=== PATIENT | female | born 1990 | race Caucasian/White ===

== ENCOUNTER 2017-05-28 11:00 | Emergency (ER) | payer OTHER ==
--- NOTE | 2017-05-28 11:07 | PDOC ---
History of Present Illness - General History Source: Patient Exam Limitations: No Limitations - History of Present Illness Initial Comments: 05/28/17 11:54 27 y.o female with no significant past medical history, who presents to the emergency room complaining of 2 weeks of vaginal bleeding, weakness, and dizziness that began after being treated with Misoprostol for an ectopic . The patient explains that the ectopic was confirmed via Ultrasound at [facility] in [place] 2 weeks ago. Initially when the vaginal bleeding began, she was saturating 7-10 pads daily. However, the bleeding gradually decreased and she is now saturating approximately 4 pads per day. Denies clots in the blood. She notes an associated foul odor that is causing her to change her pad more frequently. The patient also reports that she started feeling dizzy and weak and was instructed to return to an ED if these symptoms persist. Denies fever, chills, nausea, vomiting. Denies LOC, lightheadedness, chest pain, SOB. Allergies: NKA <Iza Pearl - Last Filed: 05/28/17 11:54> <Mitzy Burroughs - Last Filed: 05/28/17 14:57> - General Chief Complaint: Vaginal Bleeding Stated Complaint: VAGINAL BLEEDING Time Seen by Provider: 05/28/17 11:07 Past History <Iza Pearl - Last Filed: 05/28/17 11:54> - Past Medical History Asthma: No Cancer: No Cardiac Disorders: No Diabetes: No HTN: No Seizures: No Thyroid Disease: No - Suicide/Smoking/Psychosocial Hx Smoking History: Never smoked Have you smoked in the past 12 months: No Hx Alcohol Use: No Drug/Substance Use Hx: No Hx Substance Use Treatment: No <Mitzy Burroughs - Last Filed: 05/28/17 14:57> - Past Medical History Allergies/Adverse Reactions: Allergies Allergy/AdvReac Type Severity Reaction Status Date / Time No Known Allergies Allergy Verified 05/28/17 11:33 Home Medications: Ambulatory Orders NK [No Known Home Medication] 05/28/17 Review of Systems - Review of Systems Able to Perform ROS?: Yes Comments:: 05/28/17 11:55 GENERAL/CONSTITUTIONAL: +weakness, +dizziness. No fever or chills. HEAD, EYES, EARS, NOSE AND THROAT: No change in vision. No ear pain or discharge. No sore throat. GASTROINTESTINAL: No nausea, vomiting, diarrhea or constipation. GENITOURINARY: +vaginal bleeding. No dysuria, frequency, or change in urination. CARDIOVASCULAR: No chest pain or shortness of breath. RESPIRATORY: No cough, wheezing, or hemoptysis. MUSCULOSKELETAL: No joint or muscle swelling or pain. No neck or back pain. SKIN: No rash NEUROLOGIC: No headache, vertigo, loss of consciousness, or change in strength/ sensation. ENDOCRINE: No increased thirst. No abnormal weight change. HEMATOLOGIC/LYMPHATIC: No anemia, easy bleeding, or history of blood clots. ALLERGIC/IMMUNOLOGIC: No hives or skin allergy. <Iza Pearl - Last Filed: 05/28/17 11:54> *Physical Exam - Vital Signs Last Vital Signs Temp Pulse Resp BP Pulse Ox 99.0 F 93 H 18 130/65 100 05/28/17 11:06 05/28/17 11:06 05/28/17 11:06 05/28/17 11:06 05/28/17 11:06 - Physical Exam Comments: 05/28/17 11:55 GENERAL: Awake, alert, and fully oriented, in no acute distress HEAD: No signs of trauma EYES: PERRLA, EOMI, sclera anicteric, conjunctiva clear ENT: Auricles normal inspection, hearing grossly normal, nares patent, oropharynx clear without exudates. Moist mucosa NECK: Normal ROM, supple, no lymphadenopathy, JVD, or masses LUNGS: Breath sounds equal, clear to auscultation bilaterally. No wheezes, and no crackles HEART: Regular rate and rhythm, normal S1 and S2, no murmurs, rubs or gallops ABDOMEN: Soft, nontender, normoactive bowel sounds. No guarding, no rebound. No masses PELVIC: There was a moderate amount of blood in the vaginal vault with active bleeding from the cervical os. The os was friable, but closed. No cervical motion tenderness. No adnexal tenderness EXTREMITIES: Normal range of motion, no edema. No clubbing or cyanosis. No cords, erythema, or tenderness NEUROLOGICAL: Cranial nerves II through XII grossly intact. Normal speech, normal gait SKIN: Warm, Dry, normal turgor, no rashes or lesions noted. <Iza Pearl - Last Filed: 05/28/17 11:54> ED Treatment Course - LABORATORY CBC & Chemistry Diagram: 05/28/17 11:51 05/28/17 11:51 <Mitzy Burroughs - Last Filed: 05/28/17 14:57> Medical Decision Making - Medical Decision Making 05/28/17 14:48 Pt presents to the ED complaining of crampy abdominal pain and foul smelling vaginal discharge after treated for ectopic two weeks ago at [facility]. No fever, abdomen is non tender on my exam, + vaginal bleeding. Concern for persistent ectopic vs retained products of conception. US is negative for ectopic but does show evidence of retained products. Since she has no fever, elevated WBC count or severe pain, I feel that it is safe for her to be discharged home with urgent OB follow up. Will discharge patient with referral to OB. <Mitzy Burroughs - Last Filed: 05/28/17 14:57> *DC/Admit/Observation/Transfer - Attestations Scribe Attestion: 05/28/17 11:56 Documentation prepared by TEOFILO Carlisle, acting as biomedical equipment support specialist for Mitzy Burroughs MD. <Iza Pearl - Last Filed: 05/28/17 11:54> - Discharge Dispostion Admit: No <Mitzy Burroughs - Last Filed: 05/28/17 14:57> Diagnosis at time of Disposition: Retained products of conception without hemorrhage - Discharge Dispostion Disposition: HOME Condition at time of disposition: Good - Referrals Referrals: Alondra Patel MD [Staff Physician] - - Patient Instructions Printed Discharge Instructions: DI for Ectopic Additional Instructions: you have retained products of conception, and will likely need a procedure called a D and C. You must follow up with an ski technician within one week. Return immediately to the ED for fever, severe pain, nausea and vomiting, worsening vaginal bleeding, other new or worsening symptoms. Return to the ED if the OB referral we gave you will not see you within one week.
[2017-05-28 11:35] VITALS: BMI 27.4
[2017-05-28 11:58] LABS: BASO % 0.2 % (0-2.0); EOS % 3.5 % (0-4.5); HEMATOCRIT 38.7 % (32.4-45.2); HEMOGLOBIN 12.4 GM/dL (10.7-15.3); LYMPH % 18.9 % (8-40); MCH 27.6 pg (25.7-33.7); MCHC 32.1 g/dl (32.0-36.0); MEAN CELL VOLUME 86.2 fl (80-96); MEAN PLT VOLUME 8.9 fl (7.5-11.1); MONO % 6.5 % (3.8-10.2); NEUT % 70.9 % (42.8-82.8); PLATELET COUNT 252 K/MM3 (134-434); RBC 4.49 M/mm3 (3.60-5.2); RDW 13.2 % (11.6-15.6); WHITE BLOOD COUNT 8.9 K/mm3 (4.0-10.0)
[2017-05-28 12:15] LABS: INR 1.1 (0.82-1.09); PROTHROMBIN TIME (PATIENT) 12.4 SEC (9.98-11.88)
[2017-05-28 12:18] LABS: ACTIVATED PTT 30.6 SECONDS (26.9-34.4)
[2017-05-28 12:31] LABS: ALBUMIN 3.7 g/dl (3.4-5.0); ANION GAP 7 (8-16); BLOOD UREA NITROGEN 11 mg/dL (7-18); CALCIUM 9.2 mg/dL (8.5-10.1); CHLORIDE 105 mmol/L (98-107); CO2 28 mmol/L (21-32); CREATININE 0.9 mg/dL (0.55-1.02); GLUCOSE,RANDOM 101 mg/dL (74-106); POTASSIUM 4.2 mmol/L (3.5-5.1); SGOT/AST 18 U/L (15-37); SGPT/ALT 20 U/L (12-78); SODIUM 140 mmol/L (136-145)
[2017-05-28 12:33] LABS: BILIRUBIN,TOTAL 0.2 mg/dL (0.2-1.0); TOT PROT 7.4 g/dl (6.4-8.2)
[2017-05-28 12:36] LABS: ALK PHOS 91 U/L (45-117)
[2017-05-28 15:04] VITALS: BP 119/68; PULSE 72
[2017-05-28 15:11] VITALS: TEMP 98.9
== END 2017-05-28 15:12 | disposition home or self-care (01) ==
LOC: JER 11:00
DX: N89.8 Other specified noninflammatory disorders of vagina (principal); N93.9 Abnormal uterine and vaginal bleeding, unspecified; O03.39 Incomplete spontaneous abortion with other complications; O03.4 Incomplete spontaneous abortion without complication
CPT/HCPCS: 36415; 76817-TC; 80053; 84702; 84703; 85025; 85610; 85730; 86850; 86900; 86901; 99282-25

== ENCOUNTER 2018-09-07 16:17 | Emergency (ER) | payer OTHER ==
[2018-09-07 16:29] VITALS: BP 137/78; PULSE 82; TEMP 99; BMI 26.6
[2018-09-07] MEDS ORDERED: ACETAMINOPHEN 325 MG TABLET (FP) PO ONE (17:14)
--- NOTE | 2018-09-07 17:20 | PDOC ---
History of Present Illness - General Chief Complaint: Pain, Acute Stated Complaint: Pain, Acute Time Seen by Provider: 09/07/18 16:42 - History of Present Illness Initial Comments: 09/07/18 17:15 28 yo A2 at 9wga, LMP 07/01/18, with no significant pmh who p/w LLQ abdominal pain. Patient reports acute onset of sharp, shooting, LLQ abdominal pain, radiating to left flank at approximately 2:00 PM this evening, at rest. 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 Worse with rotational movement and touch. Denies h/o similar presentation. Mirta abdominal trauma. Patient reports TVUS (09/06/18) wnl. Nml PO intake and bowel habits. On B6 for nausea asx. w/ . Patient denies REED, vision change, palpitations, cough, wheezing, orthopena, PND , leg swelling/pain, vomitting, F,C, CP, SOB, urinary complaints, vaginal pain/ bleeding/itching/discharge, hematuria, BPR, diarrhea, constipation, lightheadedness, weakness, sensory changes. PMHx: as noted above. Denies abdominal surgery. ROS: as noted SHx: Denies Etoh, IVDA, tobacco use. Allergies: NKDA [facility]: Rosamaria Past History - Past Medical History Allergies/Adverse Reactions: Allergies Allergy/AdvReac Type Severity Reaction Status Date / Time No Known Allergies Allergy Verified 12/28/17 14:22 Home Medications: Ambulatory Orders NK [No Known Home Medication] 12/28/17 Asthma: No Cancer: No Cardiac Disorders: No COPD: No Diabetes: No Disorders: Yes (HPV) HTN: No Seizures: No Thyroid Disease: No - Immunization History Immunization Up to Date: No - Suicide/Smoking/Psychosocial Hx Smoking History: Former smoker Have you smoked in the past 12 months: No Information on smoking cessation initiated: No Hx Alcohol Use: No Drug/Substance Use Hx: No Substance Use Type: None Hx Substance Use Treatment: No Review of Systems - Review of Systems Comments:: 09/07/18 17:20 GENERAL/CONSTITUTIONAL: No fever or chills. No weakness. HEAD, EYES, EARS, NOSE AND THROAT: No change in vision. No ear pain or discharge. No sore throat. CARDIOVASCULAR: No chest pain or shortness of breath RESPIRATORY: No cough, wheezing, or hemoptysis. GASTROINTESTINAL: + LLQ and left flank abdominal pain. +nausea. no vomiting, diarrhea or constipation. GENITOURINARY: No dysuria, frequency, or change in urination. MUSCULOSKELETAL: No joint or muscle swelling or pain. No neck or back pain. SKIN: No rash NEUROLOGIC: No headache, vertigo, loss of consciousness, or change in strength/ sensation. ENDOCRINE: No increased thirst. No abnormal weight change HEMATOLOGIC/LYMPHATIC: No anemia, easy bleeding, or history of blood clots. ALLERGIC/IMMUNOLOGIC: No hives or skin allergy. *Physical Exam - Vital Signs Last Vital Signs Temp Pulse Resp BP Pulse Ox 99.0 F 82 18 137/78 100 09/07/18 16:28 09/07/18 16:28 09/07/18 16:28 09/07/18 16:28 09/07/18 16:28 - Physical Exam Comments: 09/07/18 17:20 GENERAL: Awake, alert, and fully oriented, in no acute distress HEAD: No signs of trauma, normocephalic, atraumatic EYES: PERRLA, EOMI, sclera anicteric, conjunctiva clear ENT: Auricles normal inspection, hearing grossly normal, nares patent, oropharynx clear without exudates. Moist mucosa NECK: Normal ROM, supple, no lymphadenopathy, JVD, or masses LUNGS: No distress, speaks full sentences, clear to auscultation bilaterally HEART: Regular rate and rhythm, normal S1 and S2, no murmurs, rubs or gallops, peripheral pulses normal and equal bilaterally. ABDOMEN: + LLQ abdominal ttp, and left flank ttp. Soft, NDS, normoactive bowel sounds. No guarding, no rebound. No masses.Neg CVA ttp. GENITOURINARY: + left adenexal ttp. Nml appearing external genitalia, with absent lesions. Vaginal vault without blood, or discharge. Cervical os closed. Neg CMT on BM.or mass palpated. Pleivc performed with supervising physician Dr. Alonzo. EXTREMITIES : Normal inspection, Normal range of motion, no edema. No clubbing or cyanosis. NEUROLOGICAL: Cranial nerves II through XII grossly intact. Normal speech, normal gait, no focal sensorimotor deficits SKIN: Warm, Dry, normal turgor, no rashes or lesions noted ED Treatment Course - LABORATORY CBC & Chemistry Diagram: 09/07/18 17:31 09/07/18 17:31 - RADIOLOGY Radiology Studies Ordered: 09/07/18 19:58 Study Date: 07-Sep-2018 19:16 Ethel Carter Name: [facility] DEPARTMENT OF RADIOLOGY Phys: Vishnu Castillo RESIDENT : 1990 Age: 28 Sex: F [facility] Acct: [id number] Loc: [address] Exam Date: 09/07/18 Status: ESTELA Kelsey [id number] Unit Number: [id number] EXAM#: TYPE/EXAM: RESULT: [id number] US/ <14WKS US Left lower quadrant pain. Pelvis ultrasound, transabdominal The uterus is anteverted and gravid measuring 10.4 x 6.5 cm. An intrauterine gestation sac, yolk sac and pole are identified. Yolk sac measures 2.5 mm. pole crown- rump length measures 2.4 cm compatible with 9 weeks of gestation. heart rate is 164 bpm. Right ovary measures 5.2 x 3 cm in and contains 2 adjacent cysts the largest measuring 2 x 1.5 cm. Normal vascular flow, arterial and venous. Normal-appearing left ovary measuring 4.2 x 1.6 cm with normal vascular flow, arterial and venous Impression: Single live intrauterine with estimated gestational age of 9 weeks. heart activity was documented. 2 small adjacent simple cysts in the right ovary with the largest measuring 2 cm. Normal vascular flow in both ovaries without torsion. Reported By: Alma Delia Medina MD 09/07/181946 Vishnu Castillo Technologist: Beronica Rivera Transcribed Date/Time: 09/07/181946 Software Packager: Alma Delia Medina Printed Date/Time: By: 09/07/18 19:58 Medical Decision Making - Medical Decision Making 09/07/18 17:19 28 yo A2 at 9wga, LMP 07/01/18, with no significant pmh who acute onset of sharp, shooting, LLQ abdominal pain, radiating to left flank. Vitals wnl, AF, A& Ox3, physical exam with LLQ ttp, and flank ttp. + left adenexal ttp on pelvic exam. Denies REED, vision change, palpitations, cough, wheezing, F/C, CP, SOB, urinary complaints, vaginal pain/bleeding/itching/discharge, hematuria, BPR, diarrhea, constipation, lightheadedness, weakness, sensory changes. Will assess for viable IUP, vs. threatened , EUGENIO. R/o ovarian torsion. Will consider ectopic , appendicitis, colitis, cystitis, nephrolithaisis, pyelonephritis. Will provide adequate analgesic control, and reassess. ED Course: 09/07/18 18:13 CBC,CMP: Unremarkable UA: Neg 09/07/18 19:58 TVUS: Single live intrauterine with estimated gestational age of 9 weeks. heart activity was documented. 2 small adjacent simple cysts in the right ovary with the largest measuring 2 cm. Normal vascular flow in both ovaries without torsion. Pt. 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 Please follow up with your Line [facility] or primary care physician within 72 hours. - Post Discharge Activity
[2018-09-07 17:48] LABS: BASO % 0.2 % (0-2.0); EOS % 0.4 % (0-4.5); HEMATOCRIT 37.9 % (32.4-45.2); HEMOGLOBIN 12.7 GM/dL (10.7-15.3); LYMPH % 18.3 % (8-40); MCH 29.6 pg (25.7-33.7); MCHC 33.5 g/dl (32.0-36.0); MEAN CELL VOLUME 88.3 fl (80-96); MEAN PLT VOLUME 8.4 fl (7.5-11.1); MONO % 5.6 % (3.8-10.2); NEUT % 75.5 % (42.8-82.8); PLATELET COUNT 242 K/MM3 (134-434); RBC 4.29 M/mm3 (3.60-5.2); RDW 13.3 % (11.6-15.6); WHITE BLOOD COUNT 9.9 K/mm3 (4.0-10.0)
--- NOTE | 2018-09-07 18:05 | PDOC ---
Attending Attestation - HPI HPI: The patient is a 28 year old female A2 (currently at 9 weeks gestation), with no significant PMH, who presents to the emergency department today complaining of abdominal pain for one day. Patient reports that pain is most prominent on the LLQ and radiates to her left flank. She notes the pain was suddenly onset, and is exacerbated with rotational movement or palpation to the area. Patient endorses nausea, but this is her baseline secondary to her (on B6) The patient denies chest pain, shortness of breath, headache and dizziness. Denies fever, chills, nausea, vomit, diarrhea and constipation. Denies dysuria, frequency, urgency and hematuria. Denies vaginal pain, vaginal bleeding, vaginal itching, or vaginal discharge. Allergies: NKA Past surgical history: None reported Social history: Denies EtOh, illicit drug, or tobacco use OBGYN: Dr. Yanet Blank 09/07/18 18:24 - Physicial Exam PE: GENERAL: +Nontoxic appearing. Awake, alert, and fully oriented, in no acute distress HEAD: No signs of trauma EYES: PERRLA, EOMI, sclera anicteric, conjunctiva clear ENT: Auricles normal inspection, hearing grossly normal, nares patent, oropharynx clear without exudates. Moist mucosa NECK: Normal ROM, supple, no lymphadenopathy, JVD, or masses LUNGS: Breath sounds equal, clear to auscultation bilaterally. No wheezes, and no crackles HEART: Regular rate and rhythm, normal S1 and S2, no murmurs, rubs or gallops ABDOMEN: +Tenderness to palpation over the LLQ. +Tenderness to palpation over the suprpbuic region. Soft, normoactive bowel sounds. No guarding, no rebound. No masses PELVIC: +Left adnexal tenderness on palpation. OS is closed. No vaginal discharge. EXTREMITIES: Normal range of motion, no edema. No clubbing or cyanosis. No cords, erythema, or tenderness NEUROLOGICAL: Cranial nerves II through XII grossly intact. Normal speech, normal gait SKIN: Warm, Dry, normal turgor, no rashes or lesions noted. 09/07/18 18:41 - Medical Decision Making Documentation prepared by TEOFILO Rios, acting as medical claims assistant for Faustina Alonzo DO. 09/07/18 18:24 <Elaina Arriaga - Last Filed: 09/07/18 18:41> - Resident Resident Name: Vishnu Castillo - ED Attending Attestation I have performed the following: I have examined & evaluated the patient, The case was reviewed & discussed with the resident, I agree w/resident's findings & plan, Exceptions are as noted - Medical Decision Making 09/07/18 18:05 I, Dr. Faustina Alnozo, DO, attest that this document has been prepared under my direction and personally reviewed by me in its entirety. I further attest, that it accurately reflects all work, treatment, procedures and medical decision -making performed by me. 09/07/18 18:14 a/p: 28yo female with lower pelvic pain -pt is , fdlmp early jun - -saw Dr. Blank yesterday, had IUP on exam -c/o constipation -L adnexa ttp on exam -will send labs, tvus -bedside ultrasound 178 FHR -will give tylenol, monitor and reassess 09/07/18 18:39 pt is B+ blood type 09/07/18 19:23 ua negative labs reviewed 09/07/18 19:49 cysts on R ovary, no uti pt stable for dc to home suspect constipation as cause, encourage po intake and increased fiber <Faustina Alonzo - Last Filed: 09/07/18 20:09>
[2018-09-07 18:27] LABS: EPI CELLS 2.1 /HPF (0-5/HPF); URINE APPEARANCE CLEAR; URINE BACTERIA 89.6 /hpf (NEGATIVE); URINE BILIRUBIN NEGATIVE (NEGATIVE); URINE CASTS 1 /hpf (0-8); URINE COLOR YELLOW; URINE GLUCOSE (UA) NEGATIVE (NEGATIVE); URINE KETONE NEGATIVE (NEGATIVE); URINE LEUK ESTERASE TRACE (NEGATIVE); URINE NITRITE NEGATIVE (NEGATIVE); URINE PROTEIN NEGATIVE (NEGATIVE); URINE UROBILINOGEN 0.2 mg/dL (0.2-1.0); URINE WBC 1 /hpf (0-5)
[2018-09-07 18:28] LABS: ALBUMIN 3.5 g/dl (3.4-5.0); ALK PHOS 67 U/L (45-117); ANION GAP 8 MMOL/L (8-16); BILIRUBIN,TOTAL < 0.1 mg/dL (0.2-1); BLOOD UREA NITROGEN 6 mg/dL (7-18); CALCIUM 9.7 mg/dL (8.5-10.1); CHLORIDE 105 mmol/L (98-107); CO2 27 mmol/L (21-32); CREATININE 0.6 mg/dL (0.55-1.3); GLUCOSE,RANDOM 85 mg/dL (74-106); POTASSIUM 4.4 mmol/L (3.5-5.1); SGOT/AST 16 U/L (15-37); SGPT/ALT 16 U/L (13-61); SODIUM 139 mmol/L (136-145); TOT PROT 7.2 g/dl (6.4-8.2)
[2018-09-07 19:12] LABS: URINE RBC 0 /hpf (0-4)
[2018-09-07] MEDS ORDERED: ACETAMINOPHEN 325 MG TABLET (FP) ONE (20:05)
== END 2018-09-07 20:20 | disposition home or self-care (01) ==
LOC: JER 16:17
DX: O26.891 Other specified pregnancy related conditions, first trimester (principal); R10.32 Left lower quadrant pain; O34.81 Maternal care for other abnormalities of pelvic organs, first trimester; N83.291 Other ovarian cyst, right side; Z3A.09 9 weeks gestation of pregnancy
CPT/HCPCS: 36415; 76801-TC; 80053; 81003; 84702; 85025; 86850; 86900; 86901; 87086; 99281-25

== ENCOUNTER 2018-10-09 05:58 | Emergency (ER) | payer OTHER ==
[2018-10-09 06:08] VITALS: TEMP 98.2; BMI 27.1
--- NOTE | 2018-10-09 08:01 | PDOC ---
Attending Attestation - Resident Resident Name: AlcidesLissette - ED Attending Attestation I have performed the following: I have examined & evaluated the patient, The case was reviewed & discussed with the resident, I agree w/resident's findings & plan, Exceptions are as noted - HPI HPI: 28 yo F history HPV, A1 presents with vaginal bleeding. She states she had intercourse with her last night, noticed bleeding this morning which was self-limited. Denies any pelvic pain. has been uncomplicated to date. - Physicial Exam PE: GENERAL: Awake, alert, and fully oriented, in no acute distress HEAD: No signs of trauma EYES: PERRLA, EOMI, sclera anicteric, conjunctiva clear ENT: Auricles normal inspection, hearing grossly normal, nares patent, oropharynx clear without exudates. Moist mucosa NECK: Normal ROM, supple, no lymphadenopathy, JVD, or masses LUNGS: Breath sounds equal, clear to auscultation bilaterally. No wheezes, and no crackles HEART: Regular rate and rhythm, normal S1 and S2, no murmurs, rubs or gallops ABDOMEN: Soft, nontender, normoactive bowel sounds. No guarding, no rebound. No masses EXTREMITIES: Normal range of motion, no edema. No clubbing or cyanosis. No cords, erythema, or tenderness NEUROLOGICAL: Cranial nerves II through XII grossly intact. Normal speech, normal gait. Motor and sensation intact SKIN: Warm, Dry, normal turgor, no rashes or lesions noted. : +Condylomata to 6 o'clock position on the cervix with traces of blood. Os closed. No adnexal tenderness, no uterine tenderness. - Medical Decision Making Bleeding is likely due to lesion on the cervix, it may have been irritated by sexual intercourse last night. Will obtain sono to evaluate well-being. Likely DC home.
--- NOTE | 2018-10-09 08:13 | PDOC ---
History of Present Illness - General Chief Complaint: Vaginal Bleeding Stated Complaint: BLEEDING/14 WEEKS Time Seen by Provider: 10/09/18 07:45 - History of Present Illness Initial Comments: Ginger Huerta is a 28yo A2 woman with a h/o HPV currently at 14wks who presents with vaginal bleeding when she woke this morning. She states that she noticed blood with clots when she went to use the bathroom. She denies any continued bleeding. She also denies any abdominal pain or cramping. She endorses low back pain but states that she often has sciatica and that this is unchanged today. She also reports that she had intercourse with her last night and did have unusual discomfort. She denies any other recent symptoms , complications with the , or previous vaginal bleeding. She reports that her previous episodes of HPV were "burned off" a few years ago. Past History - Past Medical History Allergies/Adverse Reactions: Allergies Allergy/AdvReac Type Severity Reaction Status Date / Time No Known Allergies Allergy Verified 12/28/17 14:22 Home Medications: Ambulatory Orders NK [No Known Home Medication] 12/28/17 Asthma: No Cancer: No Cardiac Disorders: No COPD: No Diabetes: No Disorders: Yes (HPV) HTN: No Seizures: No Thyroid Disease: No - Reproductive History Is Patient Now?: Yes (#): 4 Para: 1 Ectopic : Yes Therapeutic (s) & number: Yes (1) - Immunization History Immunization Up to Date: No - Suicide/Smoking/Psychosocial Hx Smoking History: Never smoked Have you smoked in the past 12 months: No Information on smoking cessation initiated: No Hx Alcohol Use: No Drug/Substance Use Hx: No Substance Use Type: None Hx Substance Use Treatment: No Review of Systems - Review of Systems Comments:: General: No fevers, no chills, no weight or appetite change, no malaise HEENT: No changes in vision, no changes in hearing, no congestion, no sore throat CV: No chest pain, no palpitations, no LE edema Pulm: No SOB, no cough, no wheezing GI: No nausea or vomiting, no change in bowel habits, no melena : No frequency, no urgency, no dysuria. See HPI Musc: No back pain, no joint swelling, no recent injury Skin: No rash, no lesions, no erythema Endo: No excessive thirst, no heat/cold intolerance Heme: No unusual bruising or bleeding, no swollen glands Neuro: No syncope, no numbness/tingling, no focal weakness Vasc: No claudication Psych: No recent change in mood, no SI or HI *Physical Exam - Vital Signs Last Vital Signs Temp Pulse Resp BP Pulse Ox 98.2 F 93 H 20 119/72 99 10/09/18 06:01 10/09/18 06:01 10/09/18 06:01 10/09/18 06:01 10/09/18 06:01 - Physical Exam Comments: General: Comfortable, no acute distress HEENT: PERRL, EOMI, MMM, voice normal, normal neck ROM, no LAD Cards: RRR, no murmur appreciated Pulm: Comfortable on room air, clear to auscultation bilaterally Abd: Soft, nontender, nondistended, gravid : No CVA tenderness. Normal external genitalia w/ 3mm condyloma at rt perineum. Vaginal canal w/ normal physiologic discharge. Friable lesion, approx nickel sized, with oozing red blood at 5-6 o'clock on the cervix. No bleeding from os. No cervical or adnexal tenderness on manual exam; lesion rough to palpation. Os closed. Ext: Atraumatic. No LE edema. ROM intact. Vasc: Extremities WWP. Neuro: A&Ox3, CN grossly intact, normal speech, motor/sensory grossly intact and symmetric Psych: Mood appropriate to situation ED Treatment Course - RADIOLOGY Radiology Studies Ordered: Category Date Time Status LIMITED US [US] Stat Ultrasound 10/09/18 08:11 Ordered Medical Decision Making - Medical Decision Making 10/09/18 08:12 Ginger Huerta is a 28yo A2 woman with a h/o HPV currently at 14wks who presents with vaginal bleeding when she woke this morning, now resolved, after intercourse last night. She was noted to have a friable lesion on the cervix c/w HPV that was oozing a small amount of blood. - Bleeding most likely due to friable lesion. No bleeding from os, and os closed on exam - CBC, CMP, bHCG, T&S ordered (B+ on previous exams) - IUP previously confirmed. Will complete abdominal US to evaluate for distress 10/09/18 10:19 - US with normal IUP, approx 13w4d, HR 168 - Discussed w/ Ms Huerta. Will d/c home with OB follow up. Seen and discussed with Dr Carpio. Lissette Mcgrath PGY1 *DC/Admit/Observation/Transfer Diagnosis at time of Disposition: Bleeding from genital tract during , HPV in female - Discharge Dispostion Disposition: HOME Condition at time of disposition: Stable Decision to Admit order: No - Referrals Referrals: Carolyne Blank MD [Primary Care Provider] - - Patient Instructions Printed Discharge Instructions: DI for Vaginal Bleeding During Additional Instructions: Discharge Instructions: You were seen in the ER for vaginal bleeding during . Your bleeding is most likely from an irritated area of your cervix. You had an ultrasound showing a normal . Please follow up with Dr Blank within the next 1-2 weeks or at your next scheduled appointment. It is recommended that you call her today to determine when she would like you to follow up. Seek immediate care for any vaginal bleeding, especially with abdominal cramping , or any other medical emergency. - Post Discharge Activity
[2018-10-09 10:34] VITALS: BP 120/73; PULSE 77
== END 2018-10-09 10:35 | disposition home or self-care (01) ==
LOC: JER 05:58
DX: O26.891 Other specified pregnancy related conditions, first trimester (principal); Z3A.14 14 weeks gestation of pregnancy; N93.9 Abnormal uterine and vaginal bleeding, unspecified; A63.0 Anogenital (venereal) warts
CPT/HCPCS: 76815-TC; 99282-25

== ENCOUNTER 2019-03-28 12:30 | Inpatient (IN) | payer OTHER ==
[2019-03-28 14:04] VITALS: BMI 66.2
[2019-03-28] MEDS ORDERED: BUTORPHANOL TARTRATE 1 MG/ML VIAL IVPB ONE (14:13)
[2019-03-28] MEDS ORDERED: PROMETHAZINE HCL 25 MG/1 ML VIAL IVPUSH ONE (14:13)
--- NOTE | 2019-03-28 14:15 | HP ---
Past Medical History - Admission History of Present Illness: 28 y/o P1 female with SIUP at 38.3 weeks here with painful contractions since yesterday. No LOF/VB. +FM. uncomplicated. H/O uncomplicated . c/o constipation, no BM X 5 days History Source: Patient, Medical Record Limitations to Obtaining History: No Limitations - Past Medical History Cardiovascular: No: HTN Pulmonary: No: Asthma, COPD Gastrointestinal: Yes: Constipation. No: GERD, Inflamatory Bowel Disease Hepatobiliary: No: Hepatitis B, Hepatitis C Renal/: No: Renal Calculi, UTI ...: 5 ...Para: 1 ...Term: 1 ...Spon : 2 ...Induced : 1 ...EDC by [facility]: 04/07/19 Heme/Onc: No: Anemia Infectious Disease: No: HIV, MRSA, STD's Psych: No: Anxiety, Bipolar, Depression Musculoskeletal: No: Chronic low back pain Rheumatology: No: Vasculitis ENT: No: Allergic Rhinitis Endocrine: No: Hyperparathyroidism, Hyperthyroidism - Past Surgical History Past Surgical History: Yes: None Hx Myomectomy: No Hx Transabdominal Cerclage: No - Smoking History Smoking history: Never smoked Have you smoked in the past 12 months: No Aproximately how many cigarettes per day: 0 - Alcohol/Substance Use Hx Alcohol Use: No - Social History History of Recent Travel: No Home Medications - Allergies Allergies/Adverse Reactions: Allergies Allergy/AdvReac Type Severity Reaction Status Date / Time No Known Allergies Allergy Verified 03/28/19 14:32 - Home Medications Home Medications: Ambulatory Orders No Home Medications 01/02/12 Tablet 1 tablet PO DAILY 03/28/19 Review of Systems - Review of Systems Constitutional: reports: No Symptoms Eyes: reports: No Symptoms HENT: reports: No Symptoms Neck: reports: No Symptoms Cardiovascular: reports: No Symptoms Respiratory: reports: No Symptoms Gastrointestinal: reports: No Symptoms Genitourinary: reports: Other (uterine contractions) Breasts: reports: No Symptoms Reported Musculoskeletal: reports: No Symptoms Integumentary: reports: No Symptoms Neurological: reports: No Symptoms Endocrine: reports: No Symptoms Hematology/Lymphatic: reports: No Symptoms Psychiatric: reports: No Symptoms Physical Exam - Maternity Vital Signs: Vital Signs Temperature 98.2 F 03/28/19 13:44 Pulse Rate 88 03/28/19 13:44 Respiratory Rate 18 03/28/19 13:44 Blood Pressure 127/78 03/28/19 13:44 O2 Sat by Pulse Oximetry (%) Constitutional: Yes: Well Nourished, No Distress, Calm Eyes: Yes: EOM Intact HENT: Yes: Atraumatic, Normocephalic Neck: Yes: Trachea Midline Cardiovascular: Yes: Regular Rate and Rhythm Lungs: Clear to auscultation - Abdominal Exam/OB Fundal Height: 38 Number of Fetuses: Single Presentation: Vertex Contractions: Yes Regularity: Regular Category: I Accelerations: Uniform - Vaginal Exam/OB Dilatation (cm): 3 Effacement (%): 70 Amniotic Membrane Status: Intact Presentation: Vertex/Position Station: -3 (large amount of stool noted in rectum) - Physical Exam Musculoskeletal: Yes: WNL Extremities: Yes: WNL Psychiatric: Yes: Alert, Oriented Hemorrhage Risk Assessment - Risk Factors Medium Risk Factors: Yes: None High Risk Factors: Yes: None Risk Score: 1 Risk Level: Medium Risk Problem List - Problems (1) Active labor at term Code(s): SSQ1641 - (2) 38 weeks gestation of Code(s): Z3A.38 - 38 WEEKS GESTATION OF Assessment/Plan 28 y/o P1 with SIUP at 38 weeks, labor for admission expectant management epidural/pain meds prn recheck prn
[2019-03-28 14:32] LABS: BASO % 0.2 % (0-2.0); EOS % 0.5 % (0-4.5); HEMATOCRIT 35.7 % (32.4-45.2); HEMOGLOBIN 11.5 GM/dL (10.7-15.3); MCH 26.8 pg (25.7-33.7); MCHC 32.2 g/dl (32.0-36.0); MEAN CELL VOLUME 83.1 fl (80-96); MEAN PLT VOLUME 9.7 fl (7.5-11.1); MONO % 9.9 % (3.8-10.2); NEUT % 77.4 % (42.8-82.8); PLATELET COUNT 170 K/MM3 (134-434); RDW 13.8 % (11.6-15.6); WHITE BLOOD COUNT 8.8 K/mm3 (4.0-10.0)
[2019-03-28 14:45] LABS: INR 1.04 (0.83-1.09); PROTHROMBIN TIME (PATIENT) 12.3 SEC (9.7-13.0)
[2019-03-28 14:48] LABS: ACTIVATED PTT 26.7 SECONDS (25.2-36.5)
[2019-03-28 14:54] LABS: BLOOD UREA NITROGEN 7.6 mg/dL (7-18); CALCIUM 9.1 mg/dL (8.5-10.1); CREATININE 0.6 mg/dL (0.55-1.3); POTASSIUM 3.9 mmol/L (3.5-5.1)
--- NOTE | 2019-03-28 19:25 | PN ---
Ante-Partal Exam - Subjective Subjective: Pt still having contractions every 4-5 minutes. Vital Signs: Vital Signs Temperature 98.2 F 03/28/19 18:00 Pulse Rate 88 03/28/19 19:00 Respiratory Rate 18 03/28/19 19:00 Blood Pressure 114/78 03/28/19 19:00 O2 Sat by Pulse Oximetry (%) Bleeding: No Headache: No Visual changes: No Right upper quadrant pain: No - Contractions Contractions: Yes Regularity: Regular Intensity: Mild/Mod - Exam during Labor Heart Rate: 140 Variability: Moderate Category: I Monitor Accelerations: Present Monitor Decelerations: None Exam: Vaginal Dilatation (cm): 4 Effacement (%): 70 Amniotic Membrane Status: Intact Presentation: Vertex Station: -2 - Assessment/Plan Assessment/Plan: 28 y/o P1 with SIUP at 38.3 weeks, labor epidural, AROM, pitocin augmentation GBS negative
[2019-03-28] MEDS: ELECTROLYTE-148 SOLN 1,000 ML IV SCH ×2 (19:35→20:30)
[2019-03-28] MEDS ORDERED: OXYTOCIN 30 UNITS in 0.9% NS 30 UNIT/500 ML INFUS.BAG IVPB ONE (19:47)
[2019-03-28] MEDS ORDERED: FENTANYL/BUPIVACAINE/NS/PF - PCEA - 50 ML DISP.SYRIN EP ONE ×2 (19:47→23:54)
[2019-03-28] MEDS ORDERED: OXYTOCIN 30 UNITS in 0.9% NS 30 UNIT/500 ML INFUS.BAG IVPB SCH (20:00)
[2019-03-28] MEDS ORDERED: LIDO 2%/EPI 1:200000 PRESRVFRE (20 ML SDVIAL) ONE (20:15)
--- NOTE | 2019-03-28 20:57 | PN ---
Ante-Partal Exam - Subjective Subjective: Pt comfortable with epidural Vital Signs: Vital Signs Temperature 98.2 F 03/28/19 18:00 Pulse Rate 88 03/28/19 19:00 Respiratory Rate 18 03/28/19 19:00 Blood Pressure 114/78 03/28/19 19:00 O2 Sat by Pulse Oximetry (%) Bleeding: No Headache: No Visual changes: No Right upper quadrant pain: No - Contractions Contractions: Yes Regularity: Irregular Intensity: Mild/Mod - Exam during Labor Heart Rate: 130 Variability: Moderate Category: I Monitor Accelerations: Present Monitor Decelerations: None Exam: Vaginal Dilatation (cm): 4.5 Effacement (%): 60 Amniotic Membrane Status: Ruptured (AROM for clear fluid) Amniotic Fluid: Clear Presentation: Vertex Station: -3 - Intrapartum Hemorrhage Risk Medium Risk Factors: None High Risk Factors: None Risk Score: 0 Risk Level: Low Risk - Assessment/Plan Assessment/Plan: FHR cat 1 s/p AROM Pitocin
[2019-03-28] MEDS ORDERED: NALOXONE HCL 0.4 MG/ML VIAL IVPUSH PRN (21:21)
[2019-03-28] MEDS ORDERED: FENTANYL/BUPIVACAINE/NS/PF - PCEA - 50 ML DISP.SYRIN EP SCH (21:30)
[2019-03-29] MEDS ORDERED: OXYTOCIN 20 UNITS in 0.9% NS 20 UNIT/1,000 ML INFUS.BAG IV ONE ×2 (00:38→05:17)
[2019-03-29] MEDS ORDERED: LIDOCAINE HCL 1% PRESERVATIVE FREE - 30ML VIAL ONE (00:38)
[2019-03-29] MEDS: ELECTROLYTE-148 SOLN 1,000 ML IV SCH (00:45)
[2019-03-29] MEDS ORDERED: LIDO 2%/EPI 1:200000 PRESRVFRE (20 ML SDVIAL) ONE (01:22)
[2019-03-29] MEDS ORDERED: METHYLERGONOVINE MALEATE 0.2 MG/1 ML AMP IM PRN (01:37)
[2019-03-29] MEDS ORDERED: BENZOCAINE 20% 57 GM BOTTLE TP PRN (01:37)
[2019-03-29] MEDS ORDERED: WITCH HAZEL 50% (TUCKS) 40 PAD/JAR PAD TP PRN (01:37)
[2019-03-29] MEDS ORDERED: BISACODYL 10 MG SUPP.RECT RC PRN (01:37)
[2019-03-29] MEDS ORDERED: BENZOCAINE 28 GM HEMORRHOIDAL OINTMENT TP PRN (01:37)
[2019-03-29] MEDS ORDERED: ACETAMINOPHEN 325 MG TABLET (FP) ONE (02:45)
[2019-03-29] MEDS: ACETAMINOPHEN 325 MG TABLET (FP) PO PRN ×2 (02:47→21:00)
[2019-03-29] MEDS: OXYTOCIN 20 UNITS in 0.9% NS 20 UNIT/1,000 ML INFUS.BAG IV SCH ×2 (03:10→06:00)
--- NOTE | 2019-03-29 04:00 | PN ---
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
[2019-03-29] MEDS: PRENATAL VITAMINS W/ FOLIC ACID TABLET (FP) PO SCH (11:00)
[2019-03-29] MEDS: IBUPROFEN 600 MG TABLET (FP) PO PRN ×2 (16:40→20:59)
[2019-03-30] MEDS ORDERED: FLU VACC QS2019-20(6MOS UP)/PF 60 MCG/0.5 ML SYRINGE IM ONE (07:30)
[2019-03-30 07:45] LABS: BASO % 0.3 % (0-2.0); EOS % 1.9 % (0-4.5); HEMATOCRIT 36.1 % (32.4-45.2); HEMOGLOBIN 11.9 GM/dL (10.7-15.3); LYMPH % 21.5 % (8-40); MCH 27.6 pg (25.7-33.7); MEAN CELL VOLUME 83.5 fl (80-96); MEAN PLT VOLUME 10.3 fl (7.5-11.1); NEUT % 68.3 % (42.8-82.8); PLATELET COUNT 167 K/MM3 (134-434); RBC 4.33 M/mm3 (3.60-5.2); RDW 13.8 % (11.6-15.6); WHITE BLOOD COUNT 7.8 K/mm3 (4.0-10.0)
[2019-03-30] MEDS: IBUPROFEN 600 MG TABLET (FP) PO PRN (09:53)
[2019-03-30] MEDS: PRENATAL VITAMINS W/ FOLIC ACID TABLET (FP) PO SCH (09:53)
[2019-03-30] MEDS ORDERED: FLU VACCINE QUAD 60 MCG/0.5 ML (MDV 19-20) IM ONE (10:00)
[2019-03-30] MEDS: ELECTROLYTE-148 SOLN 1,000 ML IV SCH (13:24)
[2019-03-30] MEDS ORDERED: SENNOSIDES/DOCUSATE COMBO (SENNA PLUS) TABLET (UD) PO PRN (22:00)
[2019-03-31] MEDS: ACETAMINOPHEN 325 MG TABLET (FP) PO PRN (00:03)
[2019-03-31] MEDS: IBUPROFEN 600 MG TABLET (FP) PO PRN (00:05)
[2019-03-31] MEDS: PRENATAL VITAMINS W/ FOLIC ACID TABLET (FP) PO SCH (10:00)
[2019-03-31 10:55] VITALS: BP 123/62; PULSE 94; TEMP 98.4
--- NOTE | 2019-03-31 11:30 | DS ---
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: Vital Signs Temperature 98.4 F 03/31/19 10:00 Pulse Rate 94 H 03/31/19 10:00 Respiratory Rate 18 03/31/19 10:00 Blood Pressure 123/62 03/31/19 10:00 O2 Sat by Pulse Oximetry (%) 100 03/29/19 04:15 Constitutional: Yes: Well Nourished, No Distress Gastrointestinal: Yes: WNL, Soft ....Post : Yes: Uterus firm, Uterus non-tender Musculoskeletal: Yes: WNL Extremities: Yes: WNL Edema: No Neurological: Yes: WNL, Alert, Oriented Labs: CBC, BMP 03/30/19 07:00 03/28/19 14:16 Delivery - Delivery Vaginal Delivery: No Problems Type of Anesthesia: Epidural Episiotomy/Laceration: 2nd degree EBL (cc): 300 Delivery, Single - Stages of Labor Date 1st Stage Initiatied: 03/28/19 Time 1st Stage Initiated: 12:30 Date 2nd Stage Initiated: 03/29/19 Time 2nd Stage Initiated: 02:45 Date of Delivery: 03/29/19 Time of Delivery: 03:03 Time Placenta Delivered: 03:05 Placenta: Yes: Spontaneous - Condition of Infant 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 Infant Gender: Male Weight: 7 lb 8 oz Position: Left, OA Total Hours ROM (Hrs/Mins): 6hrs 30min - 1 Minute Total Score: 8 10 Minutes Total Score: 9 5 Minutes Total Score: 9 - Feeding Plan Initial Plan: Exclusive throughout hospitalization Discharge Summary Problems reviewed: Yes Reason For Visit: LABOR ADMISSION Current Active Problems 38 weeks gestation of (Acute) Active labor at term (Acute) Procedures: Principal: Normal vaginal delivery Hospital Course: unremarkable Condition: Good - Instructions Disposition: HOME - Home Medications Comprehensive Discharge Medication List: Ambulatory Orders Tablet 1 tablet PO DAILY 03/28/19
--- NOTE | 2019-03-31 12:29 | PN ---
Post Note - Post Date of Delivery: 03/29/19 Post Day: 1 Vital Signs: Vital Signs - 24 hr 03/30/19 03/31/19 22:00 10:00 Temperature 97.5 F L 98.4 F Pulse Rate 82 94 H Respiratory 17 18 Rate Blood Pressure 106/70 123/62 - Subjective Subjective: No Complaints, Other (Pt seen at bedside in afternoon on 03/30) - Objective Afebrile: Yes Breast: Not engorged Abdomen: Soft, Non-tender Uterus: Fundus firm Vagina: Scant lochia Extremities: Non-tender - Assessment/Plan (1) Normal spontaneous vaginal delivery Assessment: S/P Normal Plan: Routine Care
== END 2019-03-31 13:30 | disposition home or self-care (01) | DRG 560 ==
LOC: JLDR 12:30 → J3W 03-29 14:08
PROVIDERS: ADMIT Obstetrics & Gynecology; ATTEND Obstetrics & Gynecology
PROC: 0KQM0ZZ Repair Perineum Muscle, Open Approach (ICD-10-PCS; principal; 2019-03-29)
PROC: 10E0XZZ Delivery of Products of Conception, External Approach (ICD-10-PCS; 2019-03-29)
DX: O70.1 Second degree perineal laceration during delivery (principal); Z3A.38 38 weeks gestation of pregnancy; Z37.0 Single live birth
CPT/HCPCS: 36415; 59409; 80048; 85025; 85610; 85730; 86593; 86850; 86900; 86901; 90686

== ENCOUNTER 2019-12-24 03:01 | Emergency (ER) | payer OTHER ==
[2019-12-24 03:11] VITALS: BP 129/82; PULSE 86; TEMP 97.2; BMI 25.9
--- NOTE | 2019-12-24 03:15 | PDOC ---
Attending Attestation - Resident Resident Name: GallardoBetsy - ED Attending Attestation I have performed the following: I have examined & evaluated the patient, The case was reviewed & discussed with the resident, I agree w/resident's findings & plan, Exceptions are as noted - HPI HPI: 29 yo F history PCOS presenting with palpitations and nausea. She states she took Thermobond (herbalife supplement) at midnight, normally she takes in the mo rning. She has been taking it for months. She also has been taking herbalife shakes for months. No recent changes. No other supplements, no heavy caffeine use. Denies cp, SOB, leg swelling. She felt as if her heart was pounding, resolved by the time EMS arrived. - Physicial Exam PE: GENERAL: Awake, alert, and fully oriented, in no acute distress HEAD: No signs of trauma EYES: PERRLA, EOMI, sclera anicteric, conjunctiva clear ENT: Auricles normal inspection, hearing grossly normal, nares patent, oropharynx clear without exudates. Moist mucosa NECK: Normal ROM, supple, no lymphadenopathy, JVD, or masses LUNGS: Breath sounds equal, clear to auscultation bilaterally. No wheezes, and no crackles HEART: Regular rate and rhythm, normal S1 and S2, no murmurs, rubs or gallops ABDOMEN: Soft, nontender, normoactive bowel sounds. No guarding, no rebound. No masses EXTREMITIES: Normal range of motion, no edema. No clubbing or cyanosis. No cords, erythema, or tenderness NEUROLOGICAL: Cranial nerves II through XII grossly intact. Normal speech, normal gait. Motor and sensation intact SKIN: Warm, dry, normal turgor, no rashes or lesions noted. 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 While it may be connected with her supplements (the ingredients are mostly fiber, but not all are readily identifiable), unclear. Unlikely to be hyperthyroid (no symptoms of hyperthyroid), PE (no SOB, leg swelling), ACS (no risk factors, young and otherwise healthy). Will obtain EKG. If nl, will DC home. Heart Score/ECG Review - ECG Impressions Comment:: EKG read 04:04- NSR 72 bpm, no acute ST/T changes Discharge - Discharge Information Problems reviewed: Yes Clinical Impression/Diagnosis: Palpitations Condition: Stable Disposition: HOME - Follow up/Referral - Patient Discharge Instructions - Post Discharge Activity
--- NOTE | 2019-12-24 03:49 | PDOC ---
History of Present Illness - General Chief Complaint: Irregular Heart Beat Stated Complaint: PALPITATIONS, Time Seen by Provider: 12/24/19 03:06 - History of Present Illness Initial Comments: Pt is a 29yo F with PMH of PCOS who presents with palpitations and nausea. Pt states that she took an herbalife product (Thermo-gonzáles) at midnight (usually takes this in the daytime) and woke up with palpitations at 3am. States that she drank a cup of water upon waking and felt nauseous, denies vomiting. States that her symptoms have since resolved. Reports increased thirst, weakness, and SOB. Denies fevers, chills, chest pain, abdominal pain, diarrhea/constipation, dysuria. PCP: Joni PMH: PCOS PSHx: denies Meds: Kimberly All: NKDA Social: denies tobacco, etoh, illicit drug use; uses herbalife weight loss supplements - Thermobond and Prolessa Past History - Medical History Allergies/Adverse Reactions: Allergies Allergy/AdvReac Type Severity Reaction Status Date / Time No Known Allergies Allergy Verified 12/24/19 03:07 Home Medications: Ambulatory Orders Tablet 1 tablet PO DAILY 03/28/19 Ibuprofen [Motrin -] 600 mg PO QID #28 tablet 03/31/19 Asthma: No Cancer: No Cardiac Disorders: No COPD: No Diabetes: No Disorders: Yes (HPV) HTN: No Seizures: No Thyroid Disease: No - Reproductive History (#): 4 Para: 1 Ectopic : Yes Therapeutic (s) & number: Yes (1) - Immunization History Immunization Up to Date: No - Psycho-Social/Smoking History Smoking Status: No Smoking History: Never smoked Have you smoked in the past 12 months: No Number of Cigarettes Smoked Daily: 0 Information on smoking cessation initiated: No - Substance Abuse Hx (Audit-C & DAST Scrn) How often the patient has a drink containing alcohol: Never Score: In Men: 4 or > Positive; In Women: 3 or > Positive: 0 Screen Result (Pos requires Nsg. Audit-10AR): Negative In the last yr the pt used illegal drug/Rx for NonMed reason: No Score: Yes response is considered Positive: 0 Screen Result (Positive result requires Nsg. DAST-10): Negative Review of Systems - Review of Systems Comments:: CONSTITUTIONAL:denies fever, chills, diaphoresis, generalized weakness, loss of appetite HEENT:denies rhinorrhea, nasal congestion, sore throat, visual Changes CARDIOVASCULAR: reports palpitations;denies chest pain, syncope, lightheadedness RESPIRATORY:reports SOB; denies cough, wheezing, GASTROINTESTINAL: reports nausea; denies abdominal pain, vomiting, diarrhea, constipation, melena, hematochezia GENITOURINARY:denies dysuria, frequency, urgency, hesitancy, hematuria, flank pain MUSCULOSKELETAL:denies myalgia, arthralgia, back pain HEMATOLOGIC/IMMUNOLOGIC:denies easy bleeding, easy bruising ENDOCRINE: denies unexplained weight gain, unexplained weight loss NEUROLOGIC:denies headache, loss of consciousness, dizziness, mental status changes, bladder or bowel incontinence *Physical Exam - Vital Signs Last Vital Signs Temp Pulse Resp BP Pulse Ox 97.2 F L 86 18 129/82 97 12/24/19 03:03 12/24/19 03:03 12/24/19 03:03 12/24/19 03:03 12/24/19 03:03 - Physical Exam General: awake, alert, oriented, in no acute distress, well developed, well nourished Head: normocephalic, atraumatic Eyes: PERRL, EOMI, anicteric sclera Lung: equal breath sounds b/l, CTA b/l, no crackles, wheezes; no distress, speaks full sentences Heart: RRR, normal S1, S2, no murmurs, rubs, gallops Abdomen: soft, non tender, normoactive bowel sounds, no guarding, rebound, masses Extremities: no edema, no erythema or tenderness, DP/PT pulses 2+ and symmetric, no clubbing, cyanosis Neuro: CN2-12 grossly intact, moves all extremities, normal speech, sensation intact Skin: warm, dry, no rashes or lesions noted Medical Decision Making - Medical Decision Making Pt is a 29yo F with PMH PCOS who presents with palpitations and nausea after taking dietary supplement. Symptoms have since resolved upon arrival to ED. Vital Signs Period Temp Pulse Resp BP Sys/Simpson Pulse Ox Last 24 Hr 97.2 F 86 18 129/82 97 DDx: SVT, Afib, medication adverse effect, anxiety Plan: EKG EKG: HR 72bpm, normal sinus rhythm, MN 164ms, QRS 84ms, QTc 431ms, no ST changes Patient has been asymptomatic and well appearing entire ED stay with reassuring EKG. Tolerating PO, denied need for nausea medication. Patient stable for discharge. Informed of EKG results. Given follow up instructions and return precautions. Patient expressed understanding and agree to plan. Disposition Discharge to home Discharge - Discharge Information Problems reviewed: Yes Clinical Impression/Diagnosis: Palpitations Condition: Stable Disposition: HOME - Follow up/Referral Referrals: [facility] [place] [Provider Group] - Patient Discharge Instructions Patient Printed Discharge Instructions: DI for Arrhythmias Additional Instructions: You were seen in the ER today for palpitations. Your EKG was normal and your symptoms have improved. Please follow-up with your primary care doctor within 1- 2 days to discuss your visit and make sure your symptoms have improved. You should stop taking your additional supplements and be sure to drink plenty of water to stay hydrated. Please return to the ER if you have any worsening pain or palpitations, development of fevers or chills, loss of consciousness, inability to tolerate food or fluids, or any other concerns. - Post Discharge Activity
--- NOTE | 2019-12-24 09:27 | EKG ---
Test Reason : Blood Pressure : / mmHG Vent. Rate : 072 BPM Atrial Rate : 072 BPM P-R Int : 164 ms QRS Dur : 084 ms QT Int : 394 ms P-R-T Axes : 043 061 021 degrees QTc Int : 431 ms NORMAL SINUS RHYTHM NORMAL ECG WHEN COMPARED WITH ECG OF 28-DEC-2017 14:19, NO SIGNIFICANT CHANGE WAS FOUND Confirmed by Shante Cooper ([id number]) on 12/24/2019 9:26:54 AM Referred By: Confirmed By:Shante Cooper
== END 2019-12-24 04:05 | disposition home or self-care (01) ==
LOC: JER 03:01
DX: R00.2 Palpitations (principal)
CPT/HCPCS: 93005; 93010; 99284-25